=== PATIENT | female | born 1980 | race Caucasian/White ===

== ENCOUNTER 2025-03-02 15:10 | Emergency (ER) | payer OTHER, SELFPAY ==
[2025-03-02 15:19] VITALS: BP 138/100
--- NOTE | 2025-03-02 18:02 | ED.GENMED ---
History of Present Illness
General
Chief Complaint: DVT/Possible Blood Clot
Source: patient
Exam Limitations: none
Time Seen by Provider: 03/02/25 17:55
History of Present Illness
History of Present Illness:
44yoF with a history of hypertension and breast cancer s/p double mastectomy about 3 weeks ago presenting with her for evaluation of right calf pain x 3 days. She denies any trauma or inciting incident. She researched her symptoms online
and became concerned for a blood clot. She called her PCP and was advised to go to the ED for evaluation. She is otherwise asymptomatic and denies any chest pain, shortness of breath, dizziness, or syncope. No prior history of VTE.
Phy Exam
General Physical Exam
General Presentation: well appearing and no apparent distress
General Skin: warm and dry
General Habitus: normal
General Mental: alert
ENT Exam
ENT Exam: normocephalic
Pulmonary Exam
Pulmonary Exam: no respiratory distress
Neurological Exam
Neurological Exam: alert
Diane Coma Scale
Eye Opening: Spontaneous
Verbal Response: Oriented
Motor Response: Obeys Commands
GCS Total Score: 15
Musculoskeletal Exam
Musculoskeletal Exam: other (+R calf tenderness. No pitting edema noted. 2+ PT pulse.)
Skin Exam
Skin Exam: normal color and warm/dry
Psychiatric Exam
Psychiatric Exam: normal mood/affect
Course
Orders/Labs/Results
Orders:
Orders
03/02/25 15:21
Periph Venous Lwr Ext Rt US [US Periph Venous LOWER Ext RT] Urgent
Comment: recent sugery
Reason For Exam: pain, swelling
03/02/25 18:02
Test Result ONCE
03/02/25 18:18
Basic Metabolic Panel Urgent
Complete Blood Count/With Diff Urgent
HCG, Serum Qualitative Screen Urgent
03/02/25 18:49
Apixaban [Eliquis] 10 mg PO ONCE ONE
Abnormal Lab Results
03/02/25
18:18
MCHC 32.7 L g/dL
(33.0-37.0)
Glucose 109 H mg/dl
(70-99)
03/02/25 18:18
03/02/25 18:18
Vital Signs
Initial and Last Documented VS:
Initial Vital Signs
Temp Pulse Resp BP Pulse Ox
97.9 F 106 20 138/100 99
03/02/25 15:19 03/02/25 15:19 03/02/25 15:19 03/02/25 15:19 03/02/25 15:19
Last Documented Vital Signs
Temp Pulse Resp BP Pulse Ox
97.9 F 106 20 138/100 99
03/02/25 15:19 03/02/25 15:19 03/02/25 15:19 03/02/25 15:19 03/02/25 18:06
MDM/Problems Addressed
Differential Diagnosis Includes:
44yoF here with atraumatic R calf pain x 3 days. Recent mastectomy 3 weeks ago. No CP/SOB. No dizziness or syncope. VSS. She is well appearing in no distress. R calf tenderness noted on exam. RLE is neurovascularly intact. Differential diagnosis
includes: DVT vs. muscular strain
Initial ED plan: Venous duplex obtained in triage which shows an occlusive thrombus in the R peroneal vein. No s/s of PE. Will check CBC, BMP, and HCG.
*Pulse Oximetry
SaO2: 99
Oxygen Mode of Delivery: Room air
Patient hypoxic: no (99%)
*Critical Care Note
Total Time (30-74mins, 75-104mins- exclusive of procedures): Not Applicable
Update Note
Update Note:
Labs unremarkable including normal hemoglobin and renal function. Prescription for Eliquis starter pack as well as coupon provided. Discussed that she will need anticoagulation for 3-6 months. Advised close f/u with PCP and strict ED return
precautions reviewed. Patient in agreement with plan and was discharged in stable condition.
Patient called [facility] and they will not have the starter pack available for the next few days. She was also given a paper prescription for a 1 month supply.
ED Attending Note
-
Portions of this chart may have been created with voice recognition software.� Occasional wrong word or��sound alike� substitutions may have occurred due to the inherent limitations of voice recognition software.
Discharge Plan
Departure
Patient Disposition: Home (Routine Discharge)
Date of Disposition: 03/02/25
Time of Disposition: 18:56
Patient with high blood pressure during this ER visit?: Yes
Discharge Problem:
Acute deep vein thrombosis (DVT) of right peroneal vein
Instructions: Deep Vein Thrombosis (Blood Clots in the Legs) (DC), Apixaban
Prescriptions:
New
Eliquis DVT-PE Treat 30D Start 5 mg (74 tabs) tablets,dose pack
See Rx Instructions .ROUTE .COMPLEX Qty: 74 0RF
Rx Instructions:
orally per package directions
Eliquis 5 mg tablet
5 mg PO DIRECTED Qty: 70 0RF
Rx Instructions:
Take 10mg BID PO x 7 days and 5mg BID thereafter
Referrals:
SHAYE,SARAH [Other]
Activity Restrictions/Additional Instructions:
Take Eliquis (blood thinner) as prescribed. You will need to be on blood thinners for 3-6 months.
Please follow-up with your doctor next week. Return to the ER with any worsening symptoms including chest pain, shortness of breath, or loss of consciousness.
Interventions
Interventions:
*Risk Screen - Suicide Last Done: 03/02/25 15:17
*General Assessment Last Done: 03/02/25 15:17
*ED- Fall Risk Assessment Last Done: 03/02/25 18:32
*ED COVID-19 Vaccine History Last Done: 03/02/25 18:32
ED-Peripheral Vascular Assessment Last Done: 03/02/25 18:32
ED-Skin Assessment Last Done: 03/02/25 18:32
Discharge Date and Time
Print Language: CROATIAN
[2025-03-02 18:25] LABS: Hematocrit 38.8 % (37.0-47.0); Hemoglobin 12.7 g/dL (12.0-16.0); Mean Corp Hgb Conc. 32.7 g/dL (33.0-37.0); Mean Corpuscular Volume 92.2 fL (81.0-99.0); Nucleated Red Blood Cells % 0 %; Platelet Count 221 10^3/uL (130-400); Red Cell Dist. Width 12.5 % (11.5-14.5)
[2025-03-02 18:31] VITALS: BMI 38.3
[2025-03-02 18:39] LABS: HCG, Serum Qualitative Screen Negative
[2025-03-02 18:48] LABS: Blood Urea Nitrogen 16 mg/dl (7-17); Calcium 9.3 mg/dl (8.4-10.2); Carbon Dioxide 27 mmol/L (22-30); Chloride 107 mmol/L (98-107); Estimated Creatinine Clearance 116 ml/min; Glucose 109 mg/dl (70-99); Potassium 4.4 mmol/L (3.5-5.1); Sodium 138 mmol/L (135-145); eGFR > 60.00
[2025-03-02] MEDS: ELIQUIS 10 MG PO (19:11)
== END 2025-03-02 19:32 | disposition home or self-care (01) ==
LOC: EMR 15:10
PROVIDERS: Physician Assistant; EMERGENCY PHYSICIAN Emergency Medicine
DX: I82.451 Acute embolism and thrombosis of right peroneal vein (principal); I10 Essential (primary) hypertension; Z79.01 Long term (current) use of anticoagulants; Z85.3 Personal history of malignant neoplasm of breast; Z90.13 Acquired absence of bilateral breasts and nipples
CPT/HCPCS: 99285; 80048; 84703; 85025; 93971

== ENCOUNTER 2025-07-18 05:53 | Observation (INO) | payer OTHER, SELFPAY ==
[2025-07-18 02:06] VITALS: BP 184/95
[2025-07-18 02:43] VITALS: BP 141/92
[2025-07-18 02:50] VITALS: BMI 39.8
[2025-07-18] MEDS: NSS 1000 IV ×2 (02:55→07:49)
[2025-07-18] MEDS: MORPHINE SULFATE 4 MG IV (02:55)
[2025-07-18] MEDS: ZOFRAN 4 MG IV (02:55)
[2025-07-18 03:05] LABS: Hematocrit 38.3 % (37.0-47.0); Hemoglobin 12.8 g/dL (12.0-16.0); Mean Corp Hgb Conc. 33.4 g/dL (33.0-37.0); Mean Corpuscular Volume 91.8 fL (81.0-99.0); Nucleated Red Blood Cells % 0 %; Platelet Count 274 10^3/uL (130-400); Red Cell Dist. Width 12.5 % (11.5-14.5)
[2025-07-18 03:15] LABS: HCG, Serum Qualitative Screen Negative
[2025-07-18 03:20] LABS: ALT (SGPT) 18 U/L (0-35); AST (SGOT) 27 U/L (14-36); Albumin 3.5 g/dl (3.5-5.0); Alkaline Phosphatase 28 U/L (38-126); Blood Urea Nitrogen 14 mg/dl (7-17); Calcium 9.3 mg/dl (8.4-10.2); Carbon Dioxide 26 mmol/L (22-30); Chloride 105 mmol/L (98-107); Estimated Creatinine Clearance 117 ml/min; Glucose 107 mg/dl (70-99); Lipase 89 U/L (23-300); Potassium 3.6 mmol/L (3.5-5.1); Sodium 138 mmol/L (135-145); Total Protein 6.2 g/dl (6.3-8.2); eGFR > 60.00
[2025-07-18 03:40] LABS: Troponin I < 0.012 ng/ml
[2025-07-18 03:49] LABS: TSH 1.75 uIU/ml (0.47-4.68)
[2025-07-18 05:00] VITALS: BP 117/79
[2025-07-18] MEDS: ZOSYN 100 IV (05:28)
--- NOTE | 2025-07-18 05:48 | ED.GENMED ---
History of Present Illness
General
Chief Complaint: Abdominal Pain
Source: patient
Exam Limitations: none
Time Seen by Provider: 07/18/25 02:21
Nursing documentation reviewed up to this point in time: agreed with
History of Present Illness
History of Present Illness:
Note:
CHIEF COMPLAINT(S)
Severe heartburn and abdominal pain.
HISTORY OF PRESENT ILLNESS
The patient, a 45-year-old female, presents with severe heartburn and abdominal pain starting around 11:00 AM. She describes the pain as being throughout her abdomen. The patient had breast reconstructive surgery last following a double
mastectomy in January due to breast cancer. She has experienced irregular bowel movements since the surgery, which she attributes to her medications, and last had a bowel movement yesterday. The patient reports nausea but denies any vomiting or fever.
PAST MEDICAL AND SURIGICAL HISTORY
Breast cancer. Recent breast reconstructive surgery following a double mastectomy.
PHYSICAL EXAM
General: Alert, no acute distress.
Skin: Warm, dry.
Head: Normocephalic, atraumatic.
Neck: Supple, trachea midline.
Eye Ears, nose, mouth, and throat: Oral mucosa moist.
Cardiovascular: Normal peripheral perfusion, No edema.
Respiratory: Respirations are non-labored.
Gastrointestinal: Abdomen nondistended, hyperactive bowel sounds. Positive Saab sign. Negative McBurney's point tenderness
Back: Normal range of motion, Normal alignment.
Musculoskeletal: Normal ROM, normal strength.
Neurological: Alert and oriented to person, place, time, and situation, No focal neurological deficit observed.
Psychiatric: Cooperative, appropriate mood & affect.
PLAN
The plan includes a CT scan of the abdomen, blood work, urine sample, and administration of intravenous fluids. A test will be repeated to confirm the test from .
DIFFERENTIAL DIAGNOSIS
The Differential Diagnosis includes, in no particular order and is not limited to:
1. Acute cholecystitis
2. Constipation due to medication
3. Gastroesophageal reflux disease
4. Gastritis
5. Postoperative ileus
6. Pancreatitis
7. Small bowel obstruction
8. Peptic ulcer disease
9. Appendicitis
10. Abdominal adhesions
Disposition:
SUMMARY OF ENCOUNTER
The patient, a 45-year-old female, presented to the emergency department with severe heartburn and abdominal pain post-breast reconstructive surgery. The pain had started around 11:00 AM and was generalized across her abdomen. A physical examination
revealed hyperactive bowel sounds and tenderness in the right upper quadrant upon palpation. Given her recent surgery and symptoms, the decision was made to conduct further investigations to rule out potential complications such as postoperative
ileus, constipation related to medication, or other gastrointestinal issues.
PLAN
The investigative plan includes conducting a CT scan of the abdomen, blood work, and a urine sample to assess for possible causes of abdominal pain. Intravenous fluids will be administered to manage symptoms. Additionally, a test will be
repeated to confirm the previous test from last .
INDEPENDENT REVIEW OF LABS AND INTERPRETATION OF TESTS
My independent review of labs includes the decision to conduct blood work and urine sample analysis as part of the diagnostic process to identify any underlying issues contributing to the patients symptoms.
MEDICATION RECONCILIATION
Patient to receive intravenous fluids as part of the treatment while further tests are conducted.
MEDICAL DECISION MAKING
-Complexity of Data Reviewed: Chronic conditions affecting care include breast cancer and recent reconstructive surgery. The differential diagnosis includes postoperative ileus, constipation due to medication, gastroesophageal reflux disease,
gastritis, acute cholecystitis, pancreatitis, small bowel obstruction, peptic ulcer disease, appendicitis, and abdominal adhesions.
-Data:
Category 1
Lab tests ordered include blood work and urine sample.
Category 3
Discussion of management will be with relevant specialists if tests indicate a need.
-Risk:
Consideration of Admission/Observation: Escalation of care including admission/observation was considered given the complexity and risk of the patients presenting complaint, exam findings, and/or their underlying comorbidities. However, ultimately I
feel the patient is safe for outpatient management with close follow up. Reasoning: Work-up reassuring, does not reveal any acute life/organ threatening processes, patients symptoms well controlled upon reevaluation, reexamination is reassuring,
vitals are stable, patient agreeable with discharge, reliable for follow-up.
DIAGNOSIS
1. Abdominal pain, unspecified (ICD-10: R10.9)
2. Postoperative ileus, unspecified (ICD-10: K91.89)
3. Constipation, unspecified (ICD-10: K59.00)
4. Gastroesophageal reflux disease without esophagitis (ICD-10: K21.9)
Phy Exam
Physical Exam
Physical Exam:
.
Course
Orders/Labs/Results
Orders:
Orders
07/18/25 02:46
Electrocardiogram (*1) Stat
Reason for Study: Other
Other Reason for Exam: chest pain
CT Abd/pelvis W Iv Cont Urgent
Comment:
Reason For Exam: diffuse abd pain
Cardiac Monitoring- Treatment ONCE
EKG- Treatment ONCE
07/18/25 02:47
0.9% Sodium Chloride 1000 ml [Nss] 1,000 ml IV BOLUS
Ondansetron Injectable [Zofran] 4 mg IV NOW STA
Test Result ONCE
07/18/25 02:50
Morphine Sulfate 4 mg IV NOW STA
Ondansetron Injectable [Zofran] 4 mg IV NOW STA
07/18/25 02:52
Complete Blood Count/With Diff Urgent
Comprehensive Metabolic Panel Urgent
HCG, Serum Qualitative Screen Urgent
Lipase Urgent
NT-proBNP Urgent
TSH Urgent
Troponin I Urgent
07/18/25 05:25
Piperacillin/Tazo 4.5 Gram [Zosyn] 4.5 gram in 100 ml IV NOW
07/18/25 05:37
Admit/Transfer Patient As Directed
Co-Sign Provider:
Level of Care: Observation services
Assign to:: Medical/Surgical
Physician / Group: dr rosanna
Diagnosis: cholecystitis/cholelithiasis
PRN Pain Medication Management As Directed
May give lesser potent ordered pain med per pt: Yes
preference::
Protocol:: Medication orders for pain may be administered in a
manner that supports deferring to patient preference
when the pt is:
- Requesting an ordered lesser potent pain medication.
Least to most potent pain medications are defined
as: acetaminophen < NSAID < tramadol < opioids
(morphine, oxycodone, hydromorphone).
- Requesting a lesser dose of the same medication IF
ORDERED.
- Requesting a less intrusive route of administration
if both routes are prescribed by the provider (PO <
IV).
07/18/25 05:38
Code Status As Directed
Resuscitation Status: Full Code
Abnormal Lab Results
07/18/25
02:52
RBC 4.17 L 10^6/uL
(4.20-5.40)
Glucose 107 H mg/dl
(70-99)
Alkaline Phosphatase 28 L U/L
(38-126)
Total Protein 6.2 L g/dl
(6.3-8.2)
07/18/25 02:52
07/18/25 02:52
Vital Signs
Initial and Last Documented VS:
Initial Vital Signs
Temp Pulse Resp BP Pulse Ox
97.5 F 82 16 184/95 100
07/18/25 02:06 07/18/25 02:06 07/18/25 02:06 07/18/25 02:06 07/18/25 02:06
Last Documented Vital Signs
Temp Pulse Resp BP Pulse Ox
97.5 F 76 19 117/79 100
07/18/25 02:06 07/18/25 05:00 07/18/25 05:00 07/18/25 05:00 07/18/25 05:50
*Radiology
Radiology exam reviewed: radiology read reviewed
*Pulse Oximetry
SaO2: 100
Oxygen Mode of Delivery: Room air
Patient hypoxic: no
*Critical Care Note
Total Time (30-74mins, 75-104mins- exclusive of procedures): Not Applicable
ED Attending Note
-
Portions of this chart may have been created with voice recognition software.� Occasional wrong word or��sound alike� substitutions may have occurred due to the inherent limitations of voice recognition software.
Discharge Plan
Departure
Patient Disposition: Admit
Date of Disposition: 07/18/25
Time of Disposition: 05:48
Presentation/result/management discussed w/ accepting MD/DO: Johnny Busch
Condition: Good
Discharge Problem:
Acute cholecystitis
Prescriptions:
No Action
Eliquis DVT-PE Treat 30D Start 5 mg (74 tabs) tablets,dose pack
See Rx Instructions .ROUTE .COMPLEX Qty: 74 0RF
Rx Instructions:
orally per package directions
Eliquis 5 mg tablet
5 mg PO DIRECTED Qty: 70 0RF
Rx Instructions:
Take 10mg BID PO x 7 days and 5mg BID thereafter
Referrals:
Tenthoff,Bia Poe MD [Family Provider, Family Practice]
Interventions
Interventions:
*General Assessment Last Done: 07/18/25 02:50
*Neglect/Abuse Screening Last Done: 07/18/25 02:06
*ED COVID-19 Vaccine History Last Done: 07/18/25 02:06
*ED Influenza Vaccine History Last Done: 07/18/25 02:06
[facility] Fall Risk Assessment Tool Last Done: 07/18/25 02:50
TH-Nxgxad-Flswrnocvt Assessment Last Done: 07/18/25 02:36
Discharge Date and Time
Print Language: RUSSIAN
[2025-07-18 06:00] VITALS: BP 133/93
--- NOTE | 2025-07-18 06:37 | HPS.HSE ---
Addendum entered and electronically signed by Nehemias Sage MD 07/18/25 13:27:
I saw and examined the patient.
The Cleaning Porter's note was reviewed and I agree with the note.
Comment: Clinically resolved this am. Labs unremarkable. CT with gallstone and some GBWT/edema. Has JOYCELYN BSO scheduled for Aug 06. Her cloth colorer surgeon offered concurrent CCY which she is more inclined to do rather than proceeding with CCY here in the
immediate time frame. Suspect biliary colic. Her abd exam today is totally benign. She has tolerated PO. OK for DC home. Dietary education provided.
Original Note:
Family Physician
-
Family Physician: Bia Huang MD
Chief Complaint
-
Upper abd pain
History of Present Illness
A 45-year-old female with hx of breast ca, BRACA +, migraine, HTN, DVT feb 2025 on eliquis, Depression/anxiety presents with severe heartburn and abdominal pain starting around 11:00 pm. Ate pizza for dinner.She describes the pain as being
throughout her abdomen. The patient had breast reconstructive surgery last following a double mastectomy in January due to breast cancer. She has experienced irregular bowel movements since the surgery, which she attributes to her medications,
and last had a bowel movement yesterday. The patient reports nausea but denies any vomiting or fever. Pt is due to have JOYCELYN jul 31, 2025
ED treatments:
CT abd: cholelithiasis with impacted gallstone in GB neck. GB thickening concerning for cholecystitis
zosyn started
morphine given with resolution on pain currently
Medical History
Past Medical History
Past Medical History: Reports Cancer (breast cancer. BRACA gene positive), GERD, HTN, Psychiatric (depression/anxiety) and Other (migraine, DVT calf feb 2025)
Past Surgical History: Reports Other
Additional Past Surgical History:
january 2025 bilateral mastectomy
jul 12, 2025 Bilateral breast reconstruction with tissue expanders removed and implants placed
Social History
Tobacco: Non-smoker
Alcohol: None
Drug: None
Personal:
Living: With Family
Employment: Not Employed
Family History
Family History: Cancer (breast ca paternal aunt, father tested positive for BRACA gene)
Allergies / Home Medications
Allergies reflects when Allergies were last updated in [employer].
Home Medications with original date entered in [employer]
Allergy/Medication List:
Allergies
Allergy/AdvReac Type Severity Reaction Status Date / Time
No Known Allergies Allergy Verified 07/18/25 02:06
Home Medications
apixaban 5 mg tablet (Eliquis) 5 mg PO BID 07/18/25 --------------> last dose 07/17/251999
atogepant 60 mg tablet (Qulipta) 60 mg PO DAILY 07/18/25
fluoxetine 20 mg capsule 20 mg PO DAILY 07/18/25
lisinopril 10 mg tablet 10 mg PO DAILY 07/18/25
oxycodone-acetaminophen 5 mg-325 mg tablet 5 - 325 tab PO PRN pain 07/18/25
tamoxifen 20 mg tablet 20 mg PO DAILY 07/18/25
Review of Systems
-
History Source: Patient and Family
A 12 point ROS was completed and negative except as noted: Yes
Constitutional: Reports Other (nausea)
EENT: Reports No Symptoms
Respiratory: Reports No Symptoms
Cardiac: Reports No Symptoms
Abdomen/GI: Reports Abdominal Pain (upper abd) and Nausea
: Reports No Symptoms
Musculoskeletal: Reports No Symptoms
Skin: Reports Other (bilateral breast incisions)
Neurological: Reports No Symptoms
Endocrine: Reports No Symptoms
Hematologic/Lymphatic: Reports No Symptoms
Psych: Reports No Symptoms
Physical Exam
Vital Signs
Vital Signs
Temp Pulse Resp BP Pulse Ox
97.5 F 88 13 133/93 100
07/18/25 02:06 07/18/25 05:45 07/18/25 05:45 07/18/25 06:00 07/18/25 05:50
Physical Exam
General: Well Developed, Well Nourished, No Apparent Distress, Comfortable, Conversant, Pain (after morphine reports no pain ) and Obese
HEENT: NormoCephalic, Anicteric, Moist mucous membranes, Atraumatic and Good Dentition
Respiratory: Clear
Cardiac: S1/S2 and Regular Rhythm
Breast: Deferred by me (pt with surgibra n place with dressings. did not disturb)
GI: Soft, Normal Bowel Sounds and Tender (RUQ tended to palpation )
Rectal: Deferred by Provider
Genito-urinary: Deferred by me
Musculoskeletal: No Clubbing and No Cyanosis
Skin: Warm and Dry
Neuro: Awake, Alert, Oriented, AO x 3 and No Motor Deficits
Hematologic/Lymphatic: No Lymphadenopathy
Psych: Calm
Laboratory Results
-
07/18/25 02:52
07/18/25 02:52
Laboratory Results
Total Bilirubin 0.4 mg/dl (0.2-1.3) 07/18/25 02:52
AST 27 U/L (14-36) 07/18/25 02:52
ALT 18 U/L (0-35) 07/18/25 02:52
Alkaline Phosphatase 28 U/L (38-126) L 07/18/25 02:52
Troponin I < 0.012 ng/ml 07/18/25 02:52
Lipase 89 U/L (23-300) 07/18/25 02:52
Data Reviewed
-
CT Scan: Report Reviewed by me and Discussed with Physician
Lab Data: Labs Reviewed by me and Discussed with Physician
Impression/Plan
-
IMPRESSION:
45 YO FEMALE presents to ED with upper abd pain, nausea found to have cholelithiasis with impacted gallstone in GB neck. GB thickening concerning for cholecystitis on CT scan.
PLAN:
Admit to service of Dr Busch
med surg obs
#Acute cholecystitis
-nPO x meds
-IVF:nss @100
-pain control: tylenol, morphine
-cont zosyn q6h
-zofran prn
#DVT rLE (feb 2025)
-Hold eliquis--> last dose 07/17 2000
-she is unsure how much longer she needs to be on eliquis
#HTN
- cont lisinopril
#depression/anxiety
-cont fluoxetine
#migraine
-cont qulipta- will bring in
#breast ca
-cont tamoxifen
DVT prophylaxsis: scd for now, HOLD eliquis
Full code
[2025-07-18 07:40] VITALS: BP 138/88; BMI 39.0
[2025-07-18] MEDS: ZOSYN 50 IV (11:43)
--- NOTE | 2025-07-18 13:12 | CM ---
manager investigations reviewed patient's chart and met with patient and patient lives with her spouse in a 2 story home, patient is independent with adl's and ambulation, no dme, home when stable, no needs.
PCP: Sumi Huang
Pharmacy: [facility] in [place]
[2025-07-18 13:43] VITALS: BP 122/74
== END 2025-07-18 13:48 | disposition home or self-care (01) ==
LOC: 2 SOUTH 05:53
PROVIDERS: ADMITTING PHYSICIAN Surgery; EMERGENCY PHYSICIAN Student in an Organized Health Care Education/Training Program; FAMILY PHYSICIAN Family Medicine; PRIMARYCARE PHYSICIAN Hospitalist
DX: K80.00 Calculus of gallbladder with acute cholecystitis without obstruction (principal); R10.9 Unspecified abdominal pain; K21.9 Gastro-esophageal reflux disease without esophagitis; R11.0 Nausea; R07.9 Chest pain, unspecified; F32.A Depression, unspecified; F41.9 Anxiety disorder, unspecified; G43.909 Migraine, unspecified, not intractable, without status migrainosus; I10 Essential (primary) hypertension; N83.202 Unspecified ovarian cyst, left side; N83.201 Unspecified ovarian cyst, right side; R94.31 Abnormal electrocardiogram [ECG] [EKG]; Z86.718 Personal history of other venous thrombosis and embolism; Z79.01 Long term (current) use of anticoagulants; Z85.3 Personal history of malignant neoplasm of breast; Z90.13 Acquired absence of bilateral breasts and nipples; Z79.899 Other long term (current) drug therapy; Z15.01 Genetic susceptibility to malignant neoplasm of breast; Z80.3 Family history of malignant neoplasm of breast; Z79.810 Long term (current) use of selective estrogen receptor modulators (SERMs)
CPT/HCPCS: 74177; 80053; 83690; 83880; 84443; 84484; 84703; 85025; 93005; 96361; 96365; 96375; 99285; G0378; Q9967